=== PATIENT | male | born 1980 | race Two or more races ===

== ENCOUNTER 2024-05-14 08:52 | Emergency (ER) | payer MEDICAID, SELFPAY ==
[2024-05-14 08:54] VITALS: BP 167/107; PULSE 75; RESP 17; TEMP 36.5; O2SAT 99
[2024-05-14 09:08] VITALS: BMI 26.4
[2024-05-14 09:36] VITALS: BP 167/107; PULSE 75
[2024-05-14] MEDS: cloNIDine HCL 0.1 MG TABLET 0.2 MG PO (09:36)
[2024-05-14 11:00] VITALS: BP 179/120; PULSE 78
[2024-05-14] MEDS: NIFEdipine 10 MG CAPSULE 20 MG PO (11:00)
--- NOTE | 2024-05-14 11:59 | PD.EDMEDCL ---
ED Medical Clearance RME/HPI General Chief complaint: Medical Clearance Stated complaint: MEDICAL CLEARANCE Time Seen by Provider: 05/14/24 09:01 Arrival date/time: 05/14/24 08:52 44-year-old male with medical history for hypertension not taking medication presents emergency department today medical clearance for incarceration for elevated blood pressure patient reports no chest pain no headache no dizziness no weakness patient reports no complaints at all Limitations: no limitations Related Information Allergies Allergy/AdvReac Type Severity Reaction Status Date / Time No Known Allergies Allergy Verified 05/14/24 11:03 Review of Systems Review of Systems Systems Reviewed: All systems reviewed, normal except as documented Constitutional Constitutional: Reports system reviewed and no additional complaints, except as documented, Denies fever(s) and Denies headache(s) Eyes Eyes: Reports system reviewed and no additional complaints, except as documented and Denies blurry vision ENT Ears, Nose, Mouth, and Throat: Reports system reviewed and no additional complaints, except as documented, Denies headache(s), Denies nasal congestion and Denies nasal discharge Cardiovascular Cardiovascular: Reports system reviewed and no additional complaints, except as documented, Denies chest pain and Denies dyspnea Respiratory Respiratory: Reports system reviewed and no additional complaints, except as documented, Denies chest congestion, Denies cough and Denies dyspnea Gastrointestinal Gastrointestinal: Reports system reviewed and no additional complaints, except as documented and Denies abdominal pain Integumentary/Breasts Skin/Breast: Reports system reviewed and no additional complaints, except as documented and Denies rash Neurologic Neurologic: Reports system reviewed and no additional complaints, except as documented, Reports as per HPI and Denies headache(s) Past Medical History Social History SMOKING STATUS: Current every day smoker ED Exam General Limitations: Present no limitations General appearance: Present alert and in no apparent distress Head Head exam: Present atraumatic, normocephalic and normal inspection Eye Eye exam: Present normal appearance, PERRL and EOMI; Absent conjunctival injection ENT ENT exam: Present normal exam, normal oropharynx and mucous membranes moist Neck Neck exam: Present normal inspection, full ROM and trachea midline Chest Chest inspection: Present normal inspection and symmetric chest wall rise Respiratory Respiratory exam: Present normal lung sounds bilaterally; Absent respiratory distress, wheezes, stridor, accessory muscle use or prolonged expiratory phase Cardiovascular Cardiovascular exam: Present regular rate, normal rhythm and normal heart sounds; Absent bradycardia, tachycardia, irregular rhythm, systolic murmur or diastolic murmur Abdominal Exam Abdominal exam: Present soft and normal bowel sounds Extremities Exam Extremities exam: Present normal inspection and full ROM Back Exam Back exam: Present normal inspection and full ROM Neurological Exam Neurological exam: Present alert, oriented X3 and CN II-XII intact Psychiatric Psychiatric exam: Present normal affect and normal mood Skin Skin exam: Present warm, dry, intact and normal color Course Quality Measures none Orders Category Date Time Status NIFEdipine [Procardia] Med 05/14/24 10:46 Discontinued 20 mg PO X1 ONE cloNIDine HCL [Catapres] Med 05/14/24 09:19 Discontinued 0.2 mg PO X1 ONE Vital Signs Vital signs: Vital Signs Temperature 97.7 F 05/14/24 08:54 Pulse Rate 75 05/14/24 08:54 Respiratory Rate 17 05/14/24 08:54 Blood Pressure 167/107 H 05/14/24 08:54 Pulse Oximetry (%) 99 05/14/24 08:54 Oxygen Delivery Method Room Air 05/14/24 08:54 o2 sat 99% r/a wnl Medical Clearance MDM Narrative MDM Narrative:: 44-year-old male with medical history for hypertension not taking medication presents emergency department today medical clearance for incarceration for elevated blood pressure patient reports no chest pain no headache no dizziness no weakness patient reports no complaints at all On exam patient well-appearing patient does not appear ill or toxic Patient given medication for blood pressure here which calculates his blood pressure at time of discharge patient's blood pressure is normal Time reevaluation patient reports he has no headache no dizziness no weakness no chest pain or shortness of breath Patient discharged home in no distress to follow-up with primary care doctor in the next 24 to 48 hours and for any worsening symptoms to return to the ER immediately Patient data External records reviewed:: [facility] previous records Clinical information provided by:: patient Social determinants that could affect healthcare access:: none Patient has the following chronic illnesses:: None How is presenting disease/condition affected by chronic disease/condition?: no chronic disease Evaluation data The following diagnostics were reviewed and interpreted by me:: other (specify) (N/A) Lab and/or radiology exams considered but not ordered:: N/A Interpretation Summary: N/A Medications / Prescriptions Medications or Prescriptions considered but not ordered:: Given Medication administrations:: Medication Administration History Discontinued Medications Clonidine (Clonidine Hcl 0.1 Mg Tablet) 0.2 mg PO X1 ONE Stop: 05/14/24 09:20 Last Admin: 05/14/24 09:36 Dose: 0.2 mg Documented By: SCOTT Nifedipine (Nifedipine 10 Mg Capsule) 20 mg PO X1 ONE Stop: 05/14/24 10:47 Last Admin: 05/14/24 11:00 Dose: 20 mg Documented By: SCOTT Given Consultations Consultation(s) initiated? (list below): No Diagnosis Medical Clearance Differential Diagnosis: other (Medical clearance for incarceration, chest pain, hypertension) Most likely diagnosis given after review of the tests above:: Hypertension Admission Indicated Admission indicated?: not indicated Admission Request Was there a request for admission?: No Disposition Plan Disposition Plan: Discharge Discharge Attestation Discharge Attestation: The patient and all family members were given an opportunity to ask questions and understood the discharge instructions. Discharge instructions specifically effects, indications for sooner follow up or return to the emergency department, and the expected course of current diagnosis. Patient condition: Stable Discharge Plan Plan Patient Disposition: Fpc/Court/Law Disposition Comment: Stable Prescriptions/Referrals Referrals: No Primary/Family,Physician [Primary Care Provider] - In 1 week Problem List Clinical Impression: Medical clearance for incarceration, Asymptomatic hypertension Patient/Caregiver Discharge Instructions Additional Instructions: Please follow up with your primary care doctor in the next 24-48hrs for any worsening symptoms return here immediately Print Language: Austrian RACHEL/BENITO Supervising Physician RACHEL/BENITO Supervising Physician: Dr Israel
[2024-05-14 12:08] VITALS: BP 130/84
== END 2024-05-14 12:10 ==
PROVIDERS: Emergency Provider Emergency Medicine
DX: Z02.89 Encounter for other administrative examinations (principal); I10 Essential (primary) hypertension
CPT/HCPCS: 99282; A9270